=== PATIENT | male | born 1955 | race Caucasian/White ===

== ENCOUNTER 2020-02-10 11:04 | Emergency (ER) | payer BC, OTHER ==
[2020-02-10 19:49] LABS: SARS-CoV-2 MS2 Positive; SARS-CoV-2 N Gene Negative; SARS-CoV-2 S Gene Negative; SARS-CoV-2 by NAA Not Detected (NotDetected); SARS-CoV-2 orf1ab Negative
== END 2020-02-10 11:25 | disposition home or self-care (01) ==
LOC: ERS 11:04
DX: R05 Cough (principal); Z20.828 Contact with and (suspected) exposure to other viral communicable diseases; F17.220 Nicotine dependence, chewing tobacco, uncomplicated
CPT/HCPCS: 87635; 99283; U0003

== ENCOUNTER 2023-01-01 11:25 | Outpatient (CLI) | payer MEDICARE, BC | END 2023-01-01 11:26 | disposition home or self-care (01) | LOC: SCSMRI 11:25 | PROVIDERS: ATTEND Orthopaedic Surgery Hand Surgery | DX: D36.12 Benign neoplasm of peripheral nerves and autonomic nervous system, upper limb, including shoulder (principal); I86.8 Varicose veins of other specified sites ==

== ENCOUNTER 2023-02-15 17:00 | Outpatient (CLI) | payer MEDICARE, BC | END 2023-02-15 17:01 | disposition home or self-care (01) | LOC: SLEEPLAB 17:00 | PROVIDERS: ATTEND Student in an Organized Health Care Education/Training Program | DX: G47.33 Obstructive sleep apnea (adult) (pediatric) (principal); G47.61 Periodic limb movement disorder; R40.0 Somnolence; I10 Essential (primary) hypertension; R53.83 Other fatigue | CPT/HCPCS: 95810 ==

== ENCOUNTER 2023-03-09 17:00 | Outpatient (CLI) | payer MEDICARE, BC | END 2023-03-09 17:01 | disposition home or self-care (01) | LOC: SLEEPLAB 17:00 | PROVIDERS: ATTEND Student in an Organized Health Care Education/Training Program | DX: G47.33 Obstructive sleep apnea (adult) (pediatric) (principal); R53.83 Other fatigue; G47.61 Periodic limb movement disorder; I10 Essential (primary) hypertension; R06.83 Snoring; G47.10 Hypersomnia, unspecified; E66.9 Obesity, unspecified; G47.52 REM sleep behavior disorder; Z68.37 Body mass index [BMI] 37.0-37.9, adult | CPT/HCPCS: 95811 ==

== ENCOUNTER 2023-07-03 13:28 | Outpatient (CLI) | payer MEDICARE, BC ==
[2023-07-03 14:54] LABS: #Eosinphils 0.1 10x3/uL (0.0-0.5); #Monocytes 0.5 10x3/uL (0.0-1.1); #Neutrophils 4.6 10x3/uL (1.5-8.4); %Basophils 0.3 % (0.0-2.0); %Eosinophils 1.9 % (0.0-6.0); %Lymphocytes 17.5 % (18.0-47.0); %Neutrophils 72.1 % (40.0-75.0); Hematocrit 40.5 % (38.8-50.0); Hemoglobin 14.3 g/dL (13.5-17.5); Mean Corpuscular HGB CONC 35.3 g/dL (32.0-36.0); Mean Corpuscular Hemoglobin 31.2 pg (27.0-33.0); Mean Corpuscular Volume 88.2 fl (81.2-95.1); Platelet Count 169 10x3/uL (150-450); RBC Distribution Width 12.9 % (11.5-14.5); Red Blood Cell (RBC) Count 4.59 10x6/uL (4.32-5.72); White Blood Cell (WBC) Count 6.4 10x3/uL (3.5-10.5)
== END 2023-07-03 13:29 | disposition home or self-care (01) ==
LOC: LABBT 13:28
PROVIDERS: ATTEND Orthopaedic Surgery Hand Surgery
DX: Z01.818 Encounter for other preprocedural examination (principal); D36.10 Benign neoplasm of peripheral nerves and autonomic nervous system, unspecified; M79.2 Neuralgia and neuritis, unspecified
CPT/HCPCS: 71046; 85025; 93005; 93010

== ENCOUNTER 2023-07-06 11:31 | Day surgery (SDC) | payer MEDICARE, BC ==
[2023-07-03 14:04] VITALS: BMI 36.6
[2023-07-06] MEDS ORDERED: Bacitracin Zinc Ointment 30 gm TUBE ONE (12:29)
[2023-07-06] MEDS ORDERED: Bupivacaine PF 0.5% 30 ML VIAL ONE (12:29)
[2023-07-06] MEDS ORDERED: Rocuronium Bromide 10 MG/ML (10ML VIAL) ONE (12:42)
[2023-07-06] MEDS ORDERED: fentaNYL PF 100 MCG/2 ML SYRINGE ONE (12:42)
[2023-07-06] MEDS ORDERED: Lidocaine 2% PF 5 ML VIAL ONE (12:42)
[2023-07-06] MEDS ORDERED: PROPOFOL 20 ML ONE (12:42)
[2023-07-06] MEDS ORDERED: CEFAZOLIN 2 GM VIAL ONE (12:47)
[2023-07-06] MEDS ORDERED: Sodium Chloride 0.9% 100 ML ONE (12:47)
[2023-07-06] MEDS ORDERED: ePHEDrine Sulfate 50 MG/10 ML VIAL ONE (13:08)
[2023-07-06] MEDS ORDERED: Ketorolac Tromethamine 30 MG (1 mL) VIAL ONE (14:54)
[2023-07-06] MEDS ORDERED: Ondansetron PF 4 MG/2 ML Vial ONE (15:06)
== END 2023-07-06 16:06 | disposition home or self-care (01) ==
LOC: SDC 11:31
PROVIDERS: ATTEND Orthopaedic Surgery Hand Surgery
PROC: 01N40ZZ Release Ulnar Nerve, Open Approach (ICD-10-PCS; principal; 2023-07-06)
DX: D36.12 Benign neoplasm of peripheral nerves and autonomic nervous system, upper limb, including shoulder (principal); M79.2 Neuralgia and neuritis, unspecified; H26.9 Unspecified cataract; I10 Essential (primary) hypertension; G56.21 Lesion of ulnar nerve, right upper limb; I83.90 Asymptomatic varicose veins of unspecified lower extremity; Z86.16 Personal history of COVID-19; J32.9 Chronic sinusitis, unspecified; Z96.651 Presence of right artificial knee joint; Z98.41 Cataract extraction status, right eye; Z98.42 Cataract extraction status, left eye; Z98.890 Other specified postprocedural states; Z79.899 Other long term (current) drug therapy
CPT/HCPCS: 88305; C1713; J0665; J1885; J2001; J2405; J2704; J3490